=== PATIENT | female | born 1940 | race Caucasian/White ===

== ENCOUNTER → 2016-03-11 | Outpatient (CLI) | payer MEDICARE ==
--- NOTE | 2016-03-11 14:50 | P.BASOAP ---
Subjective Principal diagnosis: Morbid obesity Patient is known to our service. She underwent laparoscopic banding in 2003. She was last seen in September 2013. At that time a small fill from 3-3.3 mL was performed. Since that time the patient was diagnosed with multiple myeloma. She is on oral therapy. She has had a 27 pound weight loss since her last visit. Recently she has had some right upper quadrant spastic pains and bloating. Denies dysphagia. She is post cholecystectomy several years ago. Objective - Vital Signs Vital signs: Vital Signs Temp 98.3 F 03/11/16 14:22 Pulse 54 L 03/11/16 14:22 Resp 20 03/11/16 14:22 BP 187/74 03/11/16 14:22 Pulse Ox Intake & Output 03/10/16 03/11/16 03/11/16 18:59 06:59 18:59 Weight 100.561 kg - Exam Abdomen: Soft, nondistended, mild right upper quadrant tenderness Assessment/Plan (1) Morbid obesity Narrative/Plan: The patient I discussed the options. Unclear whether the patient's lap band is contributing to her pain but I doubt it at this point. Will loosen the patient' s band slightly to see if this has any benefit to her. Consider CAT scan abdomen and pelvis if her symptoms persist. The patient's lap band port was palpated. The site was aseptically prepped. 1% lidocaine was infiltrated into the subcutaneous tissues through a diabetic syringe. The Perez needle was advanced into the port. Aspiration took place. A total of 0.3 ml of fluid was evacuated. Pressure was held and a sterile dressing was applied. Plan: Date: 03/11/16 Initial Weight: 100.561 kg Initial BMI: 43.2 Current Weight: 100.561 kg Current BMI: 43.2 Type of Surgery: Total Volume in Band: -0.3 Previous Volume: Volume Removed: 0.3 Volume Added: Band Size:
== END | disposition home or self-care (01) ==
CPT/HCPCS: 99212